=== PATIENT | male | born 1990 ===

== ENCOUNTER → 2021-01-14 | Outpatient (REF) ==
--- NOTE | 2021-01-14 20:32 | REP ---
INDICATION: CP COMPARISON: None. TECHNIQUE: PA and lateral. FINDINGS: The mediastinum and cardiac silhouette are normal. The lung denise are clear and without acute consolidation, effusion, or pneumothorax. The skeletal structures are intact and normal. IMPRESSION: No acute cardiopulmonary process. <Electronically signed by Manolo Woody > 01/14/212027
== END ==
LOC: M PLAIMG 12:48
PROVIDERS: ATTEND Internal Medicine
DX: R07.9 Chest pain, unspecified (principal)